=== PATIENT | female | born 1980 ===

== ENCOUNTER 2019-02-09 22:17 | Emergency (ER) | payer SELFPAY ==
[2019-02-09 23:36] VITALS: BP 108/67
[2019-02-10 00:51] LABS: Hematocrit 32.1 % (30.3-42.9); Hemoglobin 10.4 gm/dl (10.1-14.3); Mean Corpuscular HGB Conc 32 % (30-34); Mean Corpuscular Volume 79 fl (79-97); Mean Platelet Volume 9 fl (6-12); Platelet Count 217 K/mm3 (140-440); Red Blood Count 4.05 M/mm3 (3.65-5.03); Red Cell Distribution Width 15.9 % (13.2-15.2)
[2019-02-10 00:52] LABS: Basophils % (Auto) 0.9 % (0.0-1.8); Eosinophils # (Auto) 0.2 K/mm3 (0.0-0.4); Lymphocytes # (Auto) 2.3 K/mm3 (1.2-5.4); Monocytes # (Auto) 0.4 K/mm3 (0.0-0.8); Monocytes % (Auto) 8.6 % (0.0-7.3)
[2019-02-10 01:45] LABS: Bilirubin,Urine NEG (Negative); Blood,Urine SM (Negative); Color,Urine Yellow (Yellow); Mucus,Urine FEW /HPF; Protein,Urine <15 mg/dL mg/dL (Negative); Urobilinogen,Urine < 2.0 mg/dL (<2.0)
[2019-02-10] MEDS ORDERED: TYLENOL PO ONE (05:32)
--- NOTE | 2019-02-10 06:45 | Ultrasound Report ---
Of the ultrasound FINDINGS: pole is seen showing a gestational age of 8 weeks 2 days for an NICKI of 09/20/2020. Thi s is one week behind the clinical dates. More caudally there are no heart tones detectable cons istent with intrauterine demise. Left ovary appears normal. The right ovary contains a 1.3 cm c omplex cyst. There is minimal free fluid. IMPRESSION: demise Signer Name: Bradley Raines MD Signed: 02/10/2019 6:41 AM Workstation Name: [id number]
--- NOTE | 2019-02-10 07:29 | Emergency Department Report ---
ED Dysuria HPI - HPI Chief Complaint: Vaginal Bleeding Stated Complaint: 9WEEKS PREG BLEEDING Time Seen by Provider: 02/10/19 07:07 Symptoms: Dysuria: No, Frequency: No, Suprapubic Pain: No, Flank Pain: No, Fever: No, Hematuria: No, Abdominal Pain: Yes, Previous UTI's: No Other History: 38 yo female. 9 w per pt. no care. LMP 6/1. vag bleed and abd cramping. ab/mis2. ED Review of Systems ROS: Stated complaint: 9WEEKS PREG BLEEDING Other details as noted in HPI Comment: All other systems reviewed and negative ED Past Medical Hx - Past Medical History Previous Medical History?: No - Surgical History Past Surgical History?: No - Social History Smoking Status: Never Smoker Substance Use Type: None Dysuria Exam - Exam General: Vital signs noted. No distress. Alert and acting appropriately. Exam: Yes Moist Mucous Membranes, No CVA Tenderness, No Abdominal Tenderness, No Rigidity or Guarding Labs: Lab Results 02/09/19 02/09/19 02/10/19 Range/Units 23:45 23:45 00:27 WBC 5.0 (4.5-11.0) K/mm3 RBC 4.05 (3.65-5.03) M/mm3 Hgb 10.4 (10.1-14.3) gm/dl Hct 32.1 (30.3-42.9) % MCV 79 (79-97) fl MCH 26 L (28-32) pg MCHC 32 (30-34) % RDW 15.9 H (13.2-15.2) % Plt Count 217 (140-440) K/mm3 Lymph % (Auto) 45.0 H (13.4-35.0) % [place] % (Auto) 8.6 H (0.0-7.3) % Eos % (Auto) 4.0 (0.0-4.3) % Baso % (Auto) 0.9 (0.0-1.8) % Lymph # 2.3 (1.2-5.4) K/mm3 [place] # 0.4 (0.0-0.8) K/mm3 Eos # 0.2 (0.0-0.4) K/mm3 Baso # 0.0 (0.0-0.1) K/mm3 Seg Neutrophils % 41.5 (40.0-70.0) % Seg Neutrophils # 2.2 (1.8-7.7) K/mm3 HCG, Quant 8930 H (0-4) mIU/mL Urine Color Yellow (Yellow) Urine Turbidity Clear (Clear) Urine pH 5.0 (5.0-7.0) Ur Specific [place] 1.024 (1.003-1.030) Urine Protein <15 mg/dl (Negative) mg/dL Urine Glucose (UA) Neg (Negative) mg/dL Urine Ketones Neg (Negative) mg/dL Urine Blood Sm (Negative) Urine Nitrite Neg (Negative) Urine Bilirubin Neg (Negative) Urine Urobilinogen < 2.0 (<2.0) mg/dL Ur Leukocyte Esterase Sm (Negative) Urine WBC (Auto) 1.0 (0.0-6.0) /HPF Urine RBC (Auto) 3.0 (0.0-6.0) /HPF U Epithel Cells (Auto) 1.0 (0-13.0) /HPF Urine Mucus Few /HPF ED Course Vital Signs 02/09/19 02/10/19 23:35 07:07 Temperature 98.5 F Pulse Rate 77 Respiratory 20 18 Rate Blood Pressure 108/67 O2 Sat by Pulse 100 99 Oximetry ED Medical Decision Making - Lab Data Result diagrams: 02/09/19 23:45 - Radiology Data Radiology results: report reviewed, image reviewed - Medical Decision Making Labs 02/09/19 02/09/19 02/09/19 23:45 23:45 23:52 WBC 5.0 RBC 4.05 Hgb 10.4 Hct 32.1 MCV 79 MCH 26 L MCHC 32 RDW 15.9 H Plt Count 217 Lymph % (Auto) 45.0 H [place] % (Auto) 8.6 H Eos % (Auto) 4.0 Baso % (Auto) 0.9 Lymph # 2.3 [place] # 0.4 Eos # 0.2 Baso # 0.0 Seg Neutrophils % 41.5 Seg Neutrophils # 2.2 HCG, Quant 8930 H Urine Color Urine Turbidity Urine pH Ur Specific [place] Urine Protein Urine Glucose (UA) Urine Ketones Urine Blood Urine Nitrite Urine Bilirubin Urine Urobilinogen Ur Leukocyte Esterase Urine WBC (Auto) Urine RBC (Auto) U Epithel Cells (Auto) Urine Mucus Blood Type O POSITIVE 02/10/19 00:27 WBC RBC Hgb Hct MCV MCH MCHC RDW Plt Count Lymph % (Auto) [place] % (Auto) Eos % (Auto) Baso % (Auto) Lymph # [place] # Eos # Baso # Seg Neutrophils % Seg Neutrophils # HCG, Quant Urine Color Yellow Urine Turbidity Clear Urine pH 5.0 Ur Specific [place] 1.024 Urine Protein <15 mg/dl Urine Glucose (UA) Neg Urine Ketones Neg Urine Blood Sm Urine Nitrite Neg Urine Bilirubin Neg Urine Urobilinogen < 2.0 Ur Leukocyte Esterase Sm Urine WBC (Auto) 1.0 Urine RBC (Auto) 3.0 U Epithel Cells (Auto) 1.0 Urine Mucus Few Blood Type Vital Signs 02/09/19 02/10/19 23:35 07:07 Temperature 98.5 F Pulse Rate 77 Respiratory 20 18 Rate Blood Pressure 108/67 O2 Sat by Pulse 100 99 Oximetry - Differential Diagnosis ro ab Critical care attestation.: If time is entered above; I have spent that time in minutes in the direct care of this critically ill patient, excluding procedure time. ED Disposition Clinical Impression: , Spontaneous Disposition: DC-01 TO HOME OR SELFCARE Is pt being admited?: No Does the pt Need Aspirin: No Condition: Stable Additional Instructions: SEE OBGYN IN 48 H REFERRAL BELOW HCG 8930 BLOOD TYPE RH POS ULTRASOUND SUGGESTIVE OF DEMISE NEED FOLLOW UP EVALUATION BY SPECIALIST PELVIC REST TYLENOL FOR PAIN HYDRATE WELL Referrals: CYDNEY ORTIZ MD [Staff Physician] - 3-5 Days Time of Disposition: 07:30
== END 2019-02-10 08:00 | disposition home or self-care (01) ==
LOC: ED 22:17
DX: O03.9 Complete or unspecified spontaneous abortion without complication (principal); Z3A.08 8 weeks gestation of pregnancy
CPT/HCPCS: 36415; 76801; 76817; 81001; 84702; 85025; 86900; 86901

== ENCOUNTER 2020-12-21 23:04 | Emergency (ER) | payer SELFPAY | END 2020-12-22 01:42 | disposition left against medical advice (07) | LOC: ED 23:04 ==